=== PATIENT | female | born 1955 | race Caucasian/White ===

== ENCOUNTER → 2019-07-19 10:14 | Outpatient (CLI) | payer OTHER, SELFPAY ==
--- NOTE | ~2019-07-19 | CT_ITS ---
EXAMINATION: CT sinus wo con DATE: 07/19/2019 10:31 INDICATION: Sinusitis. Cough. TECHNIQUE: Computed tomography (CT) of the paranasal sinuses was performed without contrast. Iterativ e reconstruction technique was employed. Exam dose: 307.43 mGy-cm total exam DLP. COMPARISON: None FINDINGS: There is mild leftward deviation of the nasal septum. The nasal turbinates are moderately prominent and relatively symmetric in size. The paranasal sinuses are normally developed and aerated. The mastoid air cells are normally developed and aerated. Middle and inner ear apparatus appear jozef l bilaterally. Os tibiale units are patent bilaterally. IMPRESSION: Patent paranasal sinuses, ostiomeatal complexes and mastoid air cells Reviewed, dictated and finalized at [facility]. Reviewed, dictated and finalized at [facility]. IMPRESSION: Patent paranasal sinuses, ostiomeatal complexes and mastoid air ce lls
== END ==
PROVIDERS: PCP Internal Medicine; Visit Provider Otolaryngology
DX: J32.9 Chronic sinusitis, unspecified (principal)
CPT/HCPCS: 70486

== ENCOUNTER → 2021-05-26 02:12 | Outpatient (CLI) | payer MEDICARE, OTHER, SELFPAY ==
[2021-05-26 17:56] LABS: SARS-CoV-2 RNA PCR Negative
== END ==
PROVIDERS: PCP Internal Medicine
DX: Z01.812 Encounter for preprocedural laboratory examination (principal); Z20.822 Contact with and (suspected) exposure to COVID-19
CPT/HCPCS: C9803; U0003; U0005